=== PATIENT | female | born 1950 | race Caucasian/White ===

== ENCOUNTER → 2017-03-29 | Outpatient (CLI) | payer MEDICARE, BC ==
--- NOTE | 2017-03-30 08:50 | MM ---
Reason for exam: screening (asymptomatic). Last mammogram was performed 1 year and 1 month ago. History: Patient is postmenopausal and is nulliparous. Family history of breast cancer in maternal aunt. Physical Findings: A clinical breast exam by your physician is recommended on an annual basis and results should be correlated with mammographic findings. MG 3D Screening Mammo W/Cad Bilateral CC and MLO view(s) were taken. Prior study comparison: February 20, 2016, bilateral MG 3d screening mammo w/cad. February 07, 2015, bilateral MG screening mammo w CAD. January 23, 2014, bilateral MG screening mammo w CAD. The breast tissue is heterogeneously dense. This may lower the sensitivity of mammography. There is chronic nodularity in the left breast. There is no discrete abnormality. ASSESSMENT: Negative, BI-RAD 1 RECOMMENDATION: Routine screening mammogram of both breasts in 1 year.
== END | disposition home or self-care (01) ==
LOC: RADMAMWWP 07:58
PROVIDERS: ATTEND Family Medicine
DX: Z12.31 Encounter for screening mammogram for malignant neoplasm of breast (principal)
CPT/HCPCS: 77063; 77067

== ENCOUNTER → 2017-10-25 | Outpatient (CLI) | payer MEDICARE, BC ==
--- NOTE | 2017-10-25 16:05 | CONS ---
CONSULTATION This is a 67-year-old female patient, who is coming in for further advice regarding her chronic insomnia. The patient has had chronic insomnia since the age of 28 and her condition got worse at the age of 38 when she went to menopause. This is something that runs in her family and her mother has chronic insomnia also. The patient for years had difficulty initiating sleep. Her symptoms continued after she retired from work. The patient reported that she had difficulty initiating sleep and at times, it will take her up to an hour or 2 to fall asleep. Sometimes she also had difficulty in staying asleep at night. She would wake up unrefreshed and her sleep was non restorative sleep. During the day, she would feel fatigued and tired. Upon further questioning, the patient denies having any history of snoring. No choking or gasping for air in the middle of the night. No restlessness in the lower extremities. No numbness or tingling or creepy crawly sensation in lower extremities. No history of any grinding of the teeth. She has some limited anxiety. No panic attacks. No heartburn. No chest pain. No shortness of breath. No chronic pain. No history of any substance abuse. No history of alcoholism. No history of head trauma. She drinks 1 or 2 cups of coffee in the morning. She does not do late showers, does not do any late exercises. She is not into habits were she does any form of computer work or internet activity late at night time. She has discussed this with her primary care physician. Recently she was started on Ambien 10 mg at bedtime. With initiation of Ambien, her sleep quality is improved and she is able to induce sleep within 12-15 minutes and she would wake up. She would go to bed around midnight wake up 6:00 am in the morning and upon arousal she feels refreshed and she is feeling refreshed during the day. No side effects related to Ambien. No sleep walking. No sleep talking. By the time she wakes up in the morning she has no hangover. She is not taking any naps during the day. She has however concerned of the long-term side effects including the potential for dependency and take of Ambien. PAST MEDICAL HISTORY: Chronic insomnia, hyperlipidemia, and heartburn. SURGICAL HISTORY: Includes tonsillectomy, resection of an ovarian cyst. DRUG ALLERGIES: SULFA. OUTPATIENT MEDICATION LIST: Includes Ambien 10 mg at bedtime, Lipitor 20 mg daily and omeprazole 40 mg p.o. daily. SOCIAL HISTORY: Nonsmoker, no history of alcohol. No history of IV drugs. FAMILY HISTORY: Positive for insomnia. REVIEW OF SYSTEMS: 12-point review of system was done. Positive findings are mentioned above history of present illness. PHYSICAL EXAMINATION: BP is 170/80, pulse is 94, respirations 16, temp 97.9, saturation 99% on room air. Weight is 201, height 5 feet 3 inches, neck size 15 inches and BMI 35.6. GENERAL APPEARANCE: Calm, comfortable. Head is atraumatic, normocephalic. NECK: Supple. There is no JVD. No goiter or neck mass. LUNGS: Clear to auscultation. HEART: Sounds regular rhythm. Normal S1, S2. No S3, S4. No murmurs. ABDOMEN: Soft and nontender. EXTREMITIES: No edema. No cyanosis or clubbing. NEUROLOGIC: Alert and oriented x3. There is no focal neurological deficits. PSYCHIATRICALLY: The patient has no active anxiety or depression. IMPRESSION: Chronic physiologic insomnia improved on Ambien. With use of Ambien the patient is able to generate and maintain sleep for a total of 6 hours and she is waking up refreshed and alert during the day. The review of system is negative for any secondary causes that could potentially impair her sleep quality. Specifically the patient does not have any anxiety or stress or depression which of the most common cause of chronic insomnia. In addition, she does not have any significant level of anger, worry, grief, bipolar disorder or a trauma. Medically she is free of any kidney disease, cancer, acid reflux is well treated and she does not have any thyroid disease. Nor does she have any neurologic disease. She does not take any stimulating medications, nor antidepressant. She is menopausal. She has no issues with chronic pain. PLAN: My suggestion for this patient is to continue Ambien for now especially that she has been able to initiate and maintain sleep for 6 hours without any major side effects. Ambien itself is a non benzodiazepine, benzodiazepine receptor agonist. It does not suppress respiratory drive nor has any major long-term side effects. In addition, with the use of Ambien the patient was asked to avoid naps during the day. She was asked to avoid stimulating activity and stressful situations before bedtime such as checking messages, social media or any other activities. She was asked to maker her bedroom environment quiet and not allowed any light stimulation early in the morning. She was asked to stop watching TV or use her tablet or computer and choose other relaxing activities such as reading a book or listening to soft music. She was asked to maintain a regular sleep schedule. She was asked to avoid noise, light in bedroom environment and keep the temperature of the bedroom rather cool and use a comfortable mattress and pillow that will be sleep promoting. She was asked to avoid drinking too many liquids at bedtime, avoid alcohol drinking, avoid eating large meals a few hours before bed and avoid drinking caffeine in the afternoon. As far as the Ambien, this can be continued can be refilled regularly through her primary care physician, but I support this treatment at this point in time with the intention of trying to get off of it in 6 months to a year's time. She will be followed up with primary care physician. Contact me back if there should be any new issues with her sleep quality. MARGARET / ANDI: [id number] /
== END | disposition home or self-care (01) ==
LOC: SLEEP 14:16
PROVIDERS: ATTEND Internal Medicine Critical Care Medicine
DX: F51.04 Psychophysiologic insomnia (principal); E78.5 Hyperlipidemia, unspecified; Z79.899 Other long term (current) drug therapy; Z88.2 Allergy status to sulfonamides; Z90.89 Acquired absence of other organs
CPT/HCPCS: 99211

== ENCOUNTER → 2018-04-05 | Outpatient (CLI) | payer MEDICARE, BC ==
--- NOTE | 2018-04-08 09:41 | MM ---
Reason for exam: screening (asymptomatic). Last mammogram was performed 1 year ago. History: Patient is postmenopausal and is nulliparous. Family history of breast cancer in aunt. MG 3D Screening Mammo W/Cad Bilateral CC and MLO view(s) were taken. Prior study comparison: March 29, 2017, bilateral MG 3d screening mammo w/cad. February 20, 2016, bilateral MG 3d screening mammo w/cad. The breast tissue is heterogeneously dense. This may lower the sensitivity of mammography. No discrete abnormality. ASSESSMENT: Negative, BI-RAD 1 RECOMMENDATION: Routine screening mammogram of both breasts in 1 year.
== END | disposition home or self-care (01) ==
LOC: RADMAMWWP 09:11
PROVIDERS: ATTEND Family Medicine
DX: Z12.31 Encounter for screening mammogram for malignant neoplasm of breast (principal)
CPT/HCPCS: 77063; 77067

== ENCOUNTER → 2018-05-16 | Outpatient (CLI) | payer MEDICARE, BC ==
--- NOTE | 2018-05-16 13:48 | ECHOS ---
STRESS ECHOCARDIOGRAM INDICATIONS: Chest pain. MEDICATIONS: Lipitor, vitamin D, Zolpidem,omeprazole, testosterone, Biotin, COG-10, Aleve. BASELINE HEART RATE: 109 BASELINE BLOOD PRESSURE: 149/106 MAXIMUM HEART RATE: 152 MAXIMUM BLOOD PRESSURE: 194/97 85% MPHR: 128 100% MPHR: 151 METS: 8.3 MAXIMUM STAGE REACHED: II TOTAL EXERCISE TIME: 7:00 CLINICAL INFORMATION: STRESS DATA: Pretesting physical examination showed a heart rate of 109, pressure is 149/106 mmHg. Baseline EKG showed sinus mechanism. The patient exercised on the treadmill according to Angel protocol for a total of 7 minutes and achieved 8.3 METS. Max heart rate was 152, which is about 101% of maximum predicted heart rate. Maximum blood pressure was 162/76 mmHg. Clinically, the patient did not have any symptoms of chest pain or discomfort. The EKG did not show any significant ST or T-wave abnormalities concerning for ischemia. CONCLUSION: 1. Good exercise tolerance. 2. Normal EKG in response to exercise. 3. Essentially normal stress test for the patient. MMODL / IJN: [id number] /
== END | disposition home or self-care (01) ==
LOC: RADNMMAIN 09:20
PROVIDERS: ATTEND Family Medicine
DX: R07.89 Other chest pain (principal)
CPT/HCPCS: 93351

== ENCOUNTER → 2019-04-10 | Outpatient (CLI) | payer MEDICARE, BC ==
--- NOTE | 2019-04-11 14:42 | MM ---
Reason for exam: screening (asymptomatic). Last mammogram was performed 1 year ago. History: Patient is postmenopausal and is nulliparous. Family history of breast cancer in aunt. Physical Findings: A clinical breast exam by your physician is recommended on an annual basis and results should be correlated with mammographic findings. MG 3D Screening Mammo W/Cad Bilateral CC and MLO view(s) were taken. Prior study comparison: April 05, 2018, bilateral MG 3d screening mammo w/cad. March 29, 2017, bilateral MG 3d screening mammo w/cad. The breast tissue is heterogeneously dense. This may lower the sensitivity of mammography. There is no discrete abnormality. ASSESSMENT: Negative, BI-RAD 1 RECOMMENDATION: Routine screening mammogram of both breasts in 1 year.
== END | disposition home or self-care (01) ==
LOC: RADMAMWWP 08:17
PROVIDERS: ATTEND Family Medicine
DX: Z12.31 Encounter for screening mammogram for malignant neoplasm of breast (principal)
CPT/HCPCS: 77063; 77067

== ENCOUNTER → 2019-04-27 | Outpatient (CLI) | payer MEDICARE, BC ==
--- NOTE | 2019-04-27 13:16 | MR ---
EXAMINATION TYPE: MR iac wo/w con DATE OF EXAM: 04/27/2019 COMPARISON: None HISTORY: Acoustic nerve disorder, hearing loss, dysequilibrium TECHNIQUE: Multiplanar, multisequence images of the brain and brainstem with small [id number] images, high-re solution images through the internal auditory canals is performed without and with IV contrast, utili zing 8.5 mL intravenous Gadavist . FINDINGS: Diffusion weighted images demonstrate no evidence of a recent infarct or other diffusion ab normality. There is no extra-axial fluid collection. Periventricular white matter shows hyperintens ities on inversion recovery T2-weighted sequences, probable 2 confluent lesions adjacent to the poste rior horn of the right lateral ventricle towards the central semiovale measures 15 mm on the right an d axial image #20. There are approximately 5-10 lesions present. The ventricular system and cisternal spaces are normal in size and appearance. The brain volume is age appropriate. Midline structures demonstrate normal morphology. The craniocervical junction appears within normal limits. Post contrast images demonstrate focus of abnormal enhancement along the sphenoid ridge, inf erior left frontal lobe, axial image #12, sagittal image #58 through 60 measuring approximately 10 mm in greatest AP dimension on the left which is isointense on precontrast images. The dural venous sin uses appear patent. The mastoids are remarkable for inflammatory changes within the mastoid air cells on the right greater than left, sinuses are showing mild inflammatory change ethmoid air cells and l eft maxillary sinus and the globes are intact. Cerebellopontine angles are unremarkable, internal aud itory canals show symmetric and normal appearance IMPRESSION: Mild inflammatory changes mastoid air cells, sinuses. Small meningioma is favored along t he inferior aspect of the left frontal lobe. Nonspecific white matter demyelination may be due to chr onic small vessel ischemic changes.
== END | disposition home or self-care (01) ==
LOC: RADMRIMAIN 09:23
PROVIDERS: ATTEND Otolaryngology
DX: H75.02 Mastoiditis in infectious and parasitic diseases classified elsewhere, left ear (principal); G37.9 Demyelinating disease of central nervous system, unspecified; Z88.2 Allergy status to sulfonamides
CPT/HCPCS: 70553; A9585

== ENCOUNTER → 2019-06-05 | Outpatient (CLI) | payer MEDICARE, BC ==
--- NOTE | 2019-06-05 13:23 | US ---
EXAMINATION TYPE: US carotid duplex BILAT DATE OF EXAM: 06/05/2019 COMPARISON: Carotid ultrasound June 22, 2018. MRI IAC April 27, 2019. CLINICAL HISTORY: I73.9 Occlusive disease. Followup per patient. EXAM MEASUREMENTS: RIGHT: Peak Systolic Velocity (PSV) cm/sec ----- Right CCA: 90.3 ----- Right ICA: 80.9 ----- Right ECA: 122.1 ICA/CCA ratio: 0.9 RIGHT: End Diastole cm/sec ----- Right CCA: 32.3 ----- Right ICA: 29.2 ----- Right ECA: 30.0 LEFT: Peak Systolic Velocity (PSV) cm/sec ----- Left CCA: 77.6 ----- Left ICA: 59.8 ----- Left ECA: 68.1 ICA/CCA ratio: 0.8 LEFT: End Diastole cm/sec ----- Left CCA: 27.0 ----- Left ICA: 22.3 ----- Left ECA: 17.3 VERTEBRALS (direction of flow): Right Vertebral: Antegrade Left Vertebral: Antegrade Rhythm: Normal Mild to moderate intimal wall changes are seen at bilateral carotid bifurcation, but PSV is wnl bilat erally. Incidental findings of bilateral thyroid nodules are noted. David scale images demonstrate mild to moderate peripheral plaque at bilateral carotid bulb level. Evelio ocity measurements and ratios in the left portion of both internal carotid arteries remain within nor mal limits. IMPRESSION: Stable mild to moderate atherosclerotic changes without new hemodynamically significant stenosis seen in either internal carotid artery . Technologist notes bilateral thyroid nodules, thi s can be better evaluated and characterized with dedicated thyroid ultrasound if desired. Correlate c linically. Criteria for Assigning % of Stenosis / Diameter reduction (Estimation based on the indirect measurements of the internal carotid artery velocities (ICA PSV). 1. Normal (no stenosis)=ICA PSV < 125 cm/s: ratio < 2.0: ICA EDV<40 cm/s. 2. Less than 50% stenosis=ICA PSV < 125 cm/s: ratio < 2.0: ICA EDV<40 cm/s. 3. 50 to 69% stenosis=ICA PSV of 125 to 230 cm/s: ration 2.0 ? 4.0: ICA EDV 40-100 cm/s. 4. Greater than 70% stenosis to near occlusion= ICA PSV > 230 cm/s: ratio > 4.0: ICA EDV > 100 cm/s. 5. Near occlusion= ICA PSV velocities may be low or undetectable: variable ratio and ICA EDV. 6. Total occlusion=unable to detect flow.
[2019-06-05 13:59] LABS: INR 0.9 (<1.2); Partial Thromboplastin Time 23.6 sec (22.0-30.0); Prothrombin Time 9.7 sec (9.0-12.0)
[2019-06-05 14:09] LABS: Glucose 91 mg/dL (74-99)
[2019-06-05 14:28] LABS: T4, Free (Free Thyroxine) 1.18 ng/dL (0.78-2.19)
[2019-06-05 14:43] LABS: C Reactive Protein <5.0 mg/L (<10.0)
== END | disposition home or self-care (01) ==
LOC: RADUSWWP 12:36
PROVIDERS: ATTEND Psychiatry & Neurology Neurology
DX: I65.29 Occlusion and stenosis of unspecified carotid artery (principal); I63.9 Cerebral infarction, unspecified; R94.6 Abnormal results of thyroid function studies
CPT/HCPCS: 36415; 82947; 83090; 84439; 84443; 85610; 85652; 85730; 86140; 86618; 93880

== ENCOUNTER → 2020-05-07 | Outpatient (CLI) | payer MEDICARE, BC ==
--- NOTE | 2020-05-09 11:10 | MM ---
Reason for exam: screening (asymptomatic). Last mammogram was performed 1 year and 1 month ago. History: Patient is postmenopausal and is nulliparous. Family history of breast cancer in aunt. Physical Findings: A clinical breast exam by your physician is recommended on an annual basis and results should be correlated with mammographic findings. MG 3D Screening Mammo W/Cad Bilateral CC and MLO view(s) were taken. Prior study comparison: April 10, 2019, bilateral MG 3d screening mammo w/cad. April 05, 2018, bilateral MG 3d screening mammo w/cad. There are scattered fibroglandular densities. There is no discrete abnormality. No significant changes when compared with prior studies. ASSESSMENT: Negative, BI-RAD 1 RECOMMENDATION: Routine screening mammogram of both breasts in 1 year.
== END | disposition home or self-care (01) ==
LOC: RADMAMWWP 11:38
PROVIDERS: ATTEND Family Medicine
DX: Z12.31 Encounter for screening mammogram for malignant neoplasm of breast (principal)
CPT/HCPCS: 77063; 77067

== ENCOUNTER → 2020-05-15 | Outpatient (CLI) | payer MEDICARE, BC ==
--- NOTE | 2020-05-15 12:08 | US ---
EXAMINATION TYPE: US venous doppler duplex LE RT DATE OF EXAM: 05/15/2020 11:19 AM COMPARISON: NONE CLINICAL HISTORY: 69-year-old female R60 Edema lower extremity. SIDE PERFORMED: Right TECHNIQUE: The lower extremity deep venous system is examined utilizing real time linear array sonog kacie with graded compression, doppler sonography and color-flow sonography. FINDINGS: VESSELS IMAGED: Common Femoral Vein Deep Femoral Vein Greater Saphenous Vein * Femoral Vein Popliteal Vein Small Saphenous Vein * Proximal Calf Veins (* superficial vessels) Right Leg: Negative for DVT IMPRESSION: No evidence for DVT within the right lower extremity imaged from the groin to the upper calf.
== END | disposition home or self-care (01) ==
LOC: RADUSWWP 10:42
PROVIDERS: ATTEND Family Medicine
DX: R60.0 Localized edema (principal)

== ENCOUNTER → 2020-06-26 | Outpatient (CLI) | payer MEDICARE, BC ==
--- NOTE | 2020-06-26 13:39 | MR ---
EXAMINATION TYPE: MR brain and iac wo/w con DATE OF EXAM: 06/26/2020 COMPARISON: MR 04/27/2019 HISTORY: Dizziness and giddiness, R 42 TECHNIQUE: Multiplanar, multisequence images of the brain and brainstem is performed without and with IV contras t, utilizing 7.5 mL intravenous Gadavist . FINDINGS: Diffusion weighted images demonstrate no evidence of a recent infarct or other diffusion ab normality. There is no extra-axial fluid collection. There is an isointense mass present along the posterior orbital roof, the sphenoid wing on the left which shows homogenous enhancement and is pleur al-based and measures approximately 1 cm in transverse dimension by 12 mm in AP dimension by 12 mm by AP dimension. Periventricular white matter shows scattered areas of hyperintensity and inversion rec overy T2-weighted sequences, largest lesion posterior to the posterior horn the right lateral ventric le measures approximately 1.5 cm in AP dimension. The ventricular system and cisternal spaces are nor mal in size and appearance. The brain volume is age appropriate. Cerebellopontine angles are within normal limits, there is no internal auditory canal mass. Midline structures demonstrate normal morphology. The craniocervical junction appears within normal limits. Post contrast images demonstrate no abnormal enhancement. The dural venous sinuses appear pa tent. The visualized sinuses are remarkable for inflammatory change in ethmoid air cells and the glob es are intact, some inflammatory change present within the ethmoid air cells is noted, there are norm al vascular flow voids. IMPRESSION: Findings consistent with sphenoid wing meningioma. No internal auditory canal mass.
== END | disposition home or self-care (01) ==
LOC: RADMRIMAIN 07:45
PROVIDERS: ATTEND Family Medicine
DX: R42 Dizziness and giddiness (principal)
CPT/HCPCS: 70553; A9585

== ENCOUNTER → 2021-10-07 | Outpatient (CLI) | payer MEDICARE, BC ==
--- NOTE | 2021-10-08 10:08 | US ---
EXAMINATION TYPE: US arterial LE single level DATE OF EXAM: 10/07/2021 12:50 PM CLINICAL HISTORY: I73.9 PERIPHERAL VASCULAR DISEASE. Peripheral vascular disease per order. Hx hyperl ipidemia. Exam was slightly limited due to movement. Doppler Waveforms: Right: Multiphasic Left: Multiphasic Pulse Volume Recording: Pressure Gradients: Ankle-Brachial Indices: Right: 1.28 Left: 1.21 Toe Brachial Indices: Right: 0.85 Left: 0.62 IMPRESSION: Normal study
== END | disposition home or self-care (01) ==
LOC: RADUSWWP 11:44
PROVIDERS: ATTEND Family Medicine
DX: I73.9 Peripheral vascular disease, unspecified (principal)
CPT/HCPCS: 93922

== ENCOUNTER → 2021-10-10 | Outpatient (CLI) | payer MEDICARE, BC ==
--- NOTE | 2021-10-10 12:58 | MR ---
EXAMINATION TYPE: MR brain wo/w con DATE OF EXAM: 10/10/2021 12:50 PM COMPARISON: 06/26/2020 HISTORY: Follow-up comparison to abnormal MRI, intracranial meningioma. CONTRAST: Patient received 9 mL intravenous Gadavist gadolinium contrast. Multiplanar and multispin-echo imaging of the brain was performed . Pre and post contrast enhanced i mages are obtained. The ventricles, basal cisterns and sulci overlying the cerebral convexities are mildly enlarged. There is evidence of mild periventricular white matter ischemic demyelination. Remote deep white matter insults are also noted. No acute edema is seen on diffusion weighted imaging. There is no evidence for midline shift or mass effect. Acute intracranial hemorrhage or extra-axial collection is not evident. There is an enlarging left sphenoid wing homogeneously enhancing mass felt to reflect left sphenoid w ing meningioma. Current measurement is 1.4 x 1.4 x 1.0 cm versus prior maximal measurement of 1.2 cm. The paranasal sinuses and mastoid air cells are well-aerated. IMPRESSION: 1. Enlarging left sphenoid wing meningioma. 2. Age-related atrophic and chronic small vessel ischemic change. No acute intracranial process at this time.
== END | disposition home or self-care (01) ==
LOC: RADMRIMAIN 11:26
PROVIDERS: ATTEND Family Medicine
DX: G31.9 Degenerative disease of nervous system, unspecified (principal); I67.82 Cerebral ischemia
CPT/HCPCS: 70553; A9585

== ENCOUNTER → 2022-03-29 | Outpatient (CLI) | payer MEDICARE, BC ==
--- NOTE | 2022-03-29 14:30 | MR ---
EXAMINATION TYPE: MR brain wo/w con DATE OF EXAM: 03/29/2022 COMPARISON: MRI brain October 10, 2021 HISTORY: Benign neoplasm brainstem TECHNIQUE: Multiplanar, multisequence images of the brain and brainstem is performed without and with IV contras t, utilizing 9 mL intravenous Gadavist . FINDINGS: Diffusion weighted images demonstrate no evidence of a recent infarct or other diffusion ab normality. There is mild to moderate ventricular and sulcal prominence redemonstrated. There are scat tered areas of T2 hyperintensity seen throughout the white matter bilaterally redemonstrated. Lesions are nonspecific in appearance and distribution. Midline structures redemonstrate normal morphology. The craniocervical junction remains within arti l limits. Left frontal craniotomy changes are now present. Prior 1.4 cm enhancing mass in the inferior left fro ntal lobe now was not clearly seen near axial image 11. No new enhancing masses are present. There is new Mild nonspecific curvilinear dural enhancement over the bilateral frontal lobes left greater ronny n right axial image 16 for reference. Findings correlate with interval resection of left inferior fro ntal meningioma. The dural venous sinuses remain patent. Mild mucosal thickening involving the spheno id sinuses is present. Globes are intact bilaterally. Increased fluid signal right mastoid air cells is again seen. IMPRESSION: Interval successful surgical resection of left skull base meningioma. Other findings stab le. [id number] diffuse cerebral atrophy and chronic small vessel ischemic change redemonstrated . No new enhancing masses are noted.
== END | disposition home or self-care (01) ==
LOC: RADMRIMAIN 13:09
DX: D32.9 Benign neoplasm of meninges, unspecified (principal); G31.9 Degenerative disease of nervous system, unspecified; I67.82 Cerebral ischemia
CPT/HCPCS: 70553; A9585

== ENCOUNTER → 2023-04-05 | Outpatient (CLI) | payer MEDICARE, BC ==
--- NOTE | 2023-04-05 21:27 | MR ---
EXAMINATION TYPE: MR brain wo/w con DATE OF EXAM: 04/05/2023 2:13 PM CLINICAL INDICATION:Female, 72 years old with history of D32.9 BENIGN NEOPLASM; PHH, Benign neoplasm, follow-up to surgery done Dec 2021. COMPARISON: 03/29/2022. TECHNIQUE: Multi planar, multi sequence imaging was performed through the brain including: T1, T2, In version recovery, susceptibility weighted imaging and gradient echo imaging and Diffusion weighted im aging. The patient was then given intravenous contrast and multi planar, T1 fat-saturation images wer e obtained. IV Contrast: 8 cc Gadavist FINDINGS: Postsurgical changes without evidence of abnormal post contrast enhancement within the surg ical bed. Susceptibility artifact seen within the surgical bed margins. Mild cerebral atrophy with pr oportional dilation of ventricular system. Diffusion-weighted imaging shows no evidence of restricte d diffusion to suggest acute/subacute infarct. Intracranial arterial flow voids are maintained. Midli ne structures show no abnormality. Scattered foci of high T2 signal intensity are seen within the per iventricular white matter. The susceptibility weighted images do not reveal any evidence for micro-he morrhage. After administration of gadolinium, no abnormal enhancement is seen. The bone marrow signal is within normal limits. Paranasal sinuses and mastoid air cells: Moderate mucosal thickening of the left maxillary sinus. Visualized orbits: Bilaterally aphakia. IMPRESSION: 1. Stable exam with postsurgical changes of the left frontal skull. No evidence of abnormal postcontr ast enhancement. 2. No evidence of intracranial mass, acute/subacute infarct, or abnormal enhancement. 3. Nonspecific white matter changes, likely related to small vessel ischemic disease.
== END | disposition home or self-care (01) ==
LOC: RADMRIMAIN 13:03
PROVIDERS: ATTEND Neurological Surgery
DX: D32.9 Benign neoplasm of meninges, unspecified (principal); R90.82 White matter disease, unspecified; Z98.890 Other specified postprocedural states
CPT/HCPCS: 70553; A9585

== ENCOUNTER → 2023-05-16 | Outpatient (CLI) | payer MEDICARE, BC ==
--- NOTE | 2023-05-17 22:13 | MM ---
Reason for Exam: Screening (asymptomatic). Last screening mammogram was performed 12 month(s) ago. Patient History: Menarche at age 11. Patient has no children. Postmenopausal. Maternal aunt had breast cancer, age 35. Risk Values: Susan 5 year model risk: 2.0%. NCI Lifetime model risk: 4.5%. Prior Study Comparison: 05/07/2020 Bilateral Screening Mammogram, [facility]. 05/12/2021 Bilateral Screening Mammogram, [facility]. 05/13/2022 Bilateral MG 3D screening mammo w/cad, [facility]. Tissue Density: There are scattered fibroglandular densities. Findings: Analyzed By CAD. There is no suspicious group of microcalcifications or new suspicious mass in either breast. Overall Assessment: Negative, BI-RAD 1 Management: Screening Mammogram of both breasts in 1 year. . Patient should continue monthly self-breast exams. A clinical breast exam by your physician is recommended on an annual basis. This exam should not preclude additional follow-up of suspicious palpable abnormalities. Note on Susan scores and lifetime risk: 1. A Susan score greater than 3% is considered moderate risk. If this is the case, consider specialist referral to assess eligibility for a risk reducing agent. 2. If overall lifetime risk for the development of breast cancer is 20% or higher, the patient may qualify for future screening with alternating mammogram and breast MRI. Electronically signed and approved by: Ayleen Tena M.D. Radiologist
== END | disposition home or self-care (01) ==
LOC: RADMAMWWP 10:00
PROVIDERS: ATTEND Family Medicine
DX: Z12.31 Encounter for screening mammogram for malignant neoplasm of breast (principal); Z78.0 Asymptomatic menopausal state; Z80.3 Family history of malignant neoplasm of breast
CPT/HCPCS: 77063; 77067

== ENCOUNTER → 2024-04-05 | Outpatient (CLI) | payer MEDICARE, BC ==
--- NOTE | 2024-04-05 15:10 | MR ---
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 Diffusion weighted imaging is performed. FINDINGS: Redemonstrated posterior cerebral changes with left frontal craniotomy flap and underlying smooth dur al enhancement likely postsurgical change. The ventricles and sulci are age appropriate with mild generalized volume loss and ventricular promin ence. Prominent CSF space anterior left parietal convexity measuring 2.9 cm may be an underlying arachnoid cyst versus some more localized atrophy. Otherwise, no evidence for acute infarction, hemorrhage, mass, mass effect, midline shift, herniation , effacement of basal cisterns, or extra-axial fluid collection. Major intracranial flow voids are intact. T2/FLAIR weighted sequences show mild patchy right white matter change in the periventricular and saul p white matter regions of both cerebral hemispheres. Midline structures demonstrate normal morphology. The craniocervical junction is normal. Post contrast images demonstrate no evidence of pathologic enhancement. Dural venous sinuses are pat ent. Mild to moderate mucosal thickening ethmoid air cells. Rightward nasal septal deviation. Globes are i ntact. Some fluid within the right mastoid air cells. IMPRESSION: 1. Stable exam with postsurgical change of previous left frontal craniotomy flap. No residual tumor o r abnormal enhancement is seen. 2. Mild cerebral atrophy and similar mild burden of chronic small vessel ischemic disease. No acute i ntracranial abnormality seen. 3. Prominent CSF space along the anterior left parietal convexity could represent some more focal cor tical volume loss versus underlying 2.9 cm arachnoid cyst which remains unchanged. 4. Trapped fluid within the right mastoid air cells. Correlate for any mastoid pain to exclude mastoi ditis. [facility], , 04/05/2024 3:07 PM
== END | disposition home or self-care (01) ==
LOC: RADMRIMAIN 09:54
PROVIDERS: ATTEND Neurological Surgery
DX: D32.9 Benign neoplasm of meninges, unspecified (principal); I67.82 Cerebral ischemia
CPT/HCPCS: 70553; A9585

== ENCOUNTER 2024-05-20 18:18 | Inpatient (IN) | payer MEDICARE, BC, OTHER ==
--- NOTE | 2024-05-20 18:57 | ED ---
Female Urogenital HPI - General Chief complaint: Abdominal Pain Stated complaint: side pain Time Seen by Provider: 05/20/24 18:28 Source: patient, RN notes reviewed Mode of arrival: ambulatory Limitations: no limitations - History of Present Illness Initial comments: This is a 73-year-old female with history of recurrent UTIs presenting with UTI symptoms x 3 days. Patient endorses initial symptoms of increased urinary frequency, later developing right flank pain, nausea and now oliguria. Denies fever, chills, dysuria, hematuria. Denies history of nephrolithiasis. Onset/Timin -: days(s) Radiation: R flank Severity: moderate Improves with: urination - Related Data Previous Rx's Medication Instructions Recorded Ciprofloxacin HCl [Cipro] 500 mg PO BID 1 Days #14 tab 05/20/24 Allergies Allergy/AdvReac Type Severity Reaction Status Date / Time Sulfa (Sulfonamide Allergy Vomiting Verified 05/20/24 18:49 Antibiotics) Review of Systems ROS Statement: Those systems with pertinent positive or pertinent negative responses have been documented in the HPI. ROS Other: All systems not noted in ROS Statement are negative. Past Medical History Additional Past Medical History / Comment(s): over active bladder History of Any Multi-Drug Resistant Organisms: None Reported Additional Past Surgical History / Comment(s): b/l cataract removal Past Psychological History: No Psychological Hx Reported Smoking Status: Never smoker Past Alcohol Use History: None Reported Past Drug Use History: None Reported General Exam Limitations: no limitations General appearance: alert, in no apparent distress Head exam: Present: atraumatic, normocephalic, normal inspection Eye exam: Present: normal appearance, PERRL, EOMI. Absent: scleral icterus, conjunctival injection, periorbital swelling ENT exam: Present: normal exam, mucous membranes moist Neck exam: Present: normal inspection. Absent: tenderness, meningismus, lymphadenopathy Respiratory exam: Present: normal lung sounds bilaterally. Absent: respiratory distress, wheezes, rales, rhonchi, stridor Cardiovascular Exam: Present: regular rate, normal rhythm, normal heart sounds. Absent: systolic murmur, diastolic murmur, rubs, gallop, clicks GI/Abdominal exam: Present: soft, normal bowel sounds. Absent: distended, tenderness, guarding, rebound, rigid Extremities exam: Present: normal inspection, full ROM, normal capillary refill. Absent: tenderness, pedal edema, joint swelling, calf tenderness Back exam: Present: CVA tenderness (R). Absent: CVA tenderness (L) Neurological exam: Present: alert, oriented X3, CN II-XII intact Psychiatric exam: Present: normal affect, normal mood Skin exam: Present: warm, dry, intact, normal color. Absent: rash Course Vital Signs 05/20/24 05/20/24 05/20/24 18:44 19:35 21:51 Temperature 97.8 F 97.6 F 102 F H Pulse Rate 86 93 131 H Respiratory 19 18 22 Rate Blood Pressure 168/84 205/106 158/71 O2 Sat by Pulse 99 98 90 L Oximetry 05/20/24 22:48 Temperature 101 F H Pulse Rate 122 H Respiratory 18 Rate Blood Pressure 132/63 O2 Sat by Pulse 92 L Oximetry Medical Decision Making - Medical Decision Making Was pt. sent in by a medical professional or institution (, PA, ARTERIAL EMBALMER, urgent care, hospital, or assisted...) When possible be specific @ -No Did you speak to anyone other than the patient for history (EMS, parent, family, police, friend...)? What history was obtained from this source @ -No Did you review nursing and triage notes (agree or disagree)? Why? @ -I reviewed and agree with nursing and triage notes Were old charts reviewed (outside hosp., previous admission, EMS record, old EKG, old radiological studies, urgent care reports/EKG's, assisted records)? Report findings @ -No old charts were reviewed Differential Diagnosis (chest pain, altered mental status, abdominal pain women, abdominal pain men, vaginal bleeding, weakness, fever, dyspnea, syncope, headache, dizziness, GI bleed, back pain, seizure, CVA, palpatations, mental health, musculoskeletal)? @ -Differential Abdominal Pain Women: Appendicitis, Cholecystitis, diverticulosis, ischemic bowel, pancreatitis, hepatitis, UTI, gastroenteritis, AAA, incarcerated hernia, bowel obstruction, constipation, inflammatory bowel, hepatitis, peptic ulcer disease, splenic infarction, perforated viscus, vulvitis, ovarian torsion, PID, kidney stone, placenta abruption, this is not meant to be an all-inclusive list EKG interpreted by me (3pts min.). @ -Not done X-rays interpreted by me (1pt min.). @ -None done CT interpreted by me (1pt min.). @ -Abdomen/pelvic CT shows moderate right hydronephrosis and periureteral inflammatory changes with no obstructing etiology as well as left kidney peripelvic cyst. U/S interpreted by me (1pt. min.). @ -None done What testing was considered but not performed or refused? (CT, X-rays, U/S, labs)? Why? @ -None What meds were considered but not given or refused? Why? @ -None Did you discuss the management of the patient with other professionals (professionals i.e. Dr., PA, ARTERIAL EMBALMER, lab, RT, psych nurse, social worker palliative care, riveting machine operator tape control, teacher, parole hearing officer, piano case maker)? Give summary @ -Spoke to Dr. Greene from [facility] who agreed to observation admission Was smoking cessation discussed for >3mins.? @ -No Was critical care preformed (if so, how long)? @ -No Were there social determinants of health that impacted care today? How? (Homelessness, low income, unemployed, alcoholism, drug addiction, transportation, low edu. Level, literacy, decrease access to med. care, skilled nursing, rehab)? @ -No Was there de-escalation of care discussed even if they declined (Discuss DNR or withdrawal of care, Hospice)? DNR status @ -No What co-morbidities impacted this encounter? (DM, HTN, Smoking, COPD, CAD, Cancer, CVA, ARF, Chemo, Hep., AIDS, mental health diagnosis, sleep apnea, morbid obesity)? @ -None Was patient admitted / discharged? Hospital course, mention meds given and route, prescriptions, significant lab abnormalities, going to OR and other pertinent info. @ -Lab work shows mild leukocytosis 11.2 with left shift. Elevated BUN 24 and hyperglycemia 148. UA shows indication of UTI. Patient initially given IV normal saline and Zofran. Provided IV Rocephin and additional normal saline. Due to significantly elevated blood pressure, abdomen/pelvic CT performed to rule out nephrolithiasis. Abdomen/pelvic CT shows moderate right hydronephrosis and periureteral inflammatory changes with no obstructing etiology as well as left kidney peripelvic cyst. Patient provided p.o. ciprofloxacin with remaining regimen sent to pharmacy. Prior to discharge, repeat vital signs show significant hypertension, tachycardia, hypoxia and fever. Patient provided p.o. Tylenol and ibuprofen. Repeat vital signs shows ongoing fever, tachycardia 120 and hypoxia 92% room air. Spoke to Dr. Greene from [facility] who agreed to observati on admission. Discussed patient with Dr. Lennon. Undiagnosed new problem with uncertain prognosis? @ -No Drug Therapy requiring intensive monitoring for toxicity (Heparin, Nitro, Insulin, Cardizem)? @ -No Were any procedures done? @ -No Diagnosis/symptom? @ -UTI with pyelonephritis Acute, or Chronic, or Acute on Chronic? @ -Acute Uncomplicated (without systemic symptoms) or Complicated (systemic symptoms)? @ -Complicated Side effects of treatment? @ -No Exacerbation, Progression, or Severe Exacerbation? @ -Progression Poses a threat to life or bodily function? How? (Chest pain, [place], [place], pneumonia, PE, COPD, DKA, ARF, appy, cholecystitis, CVA, Diverticulitis, Homicidal, Suicidal, threat to staff... and all critical care pts) @ -Pyelonephritis, possibility for urosepsis - Lab Data Result diagrams: 05/20/24 19:10 05/20/24 19:10 Lab Results 05/20/24 05/20/24 05/20/24 Range/Units 19:10 19:10 19:10 WBC 11.2 H (3.8-10.6) k/uL RBC 4.75 (3.80-5.40) m/uL Hgb 13.1 (11.4-16.0) gm/dL Hct 40.8 (34.0-46.0) % MCV 86.0 (80.0-100.0) fL MCH 27.7 (25.0-35.0) pg MCHC 32.2 (31.0-37.0) g/dL RDW 14.0 (11.5-15.5) % Plt Count 260 (150-450) k/uL MPV 7.6 Neutrophils % 91 % Lymphocytes % 7 % Monocytes % 1 % Eosinophils % 1 % Basophils % 0 % Neutrophils # 10.2 H (1.3-7.7) k/uL Lymphocytes # 0.8 L (1.0-4.8) k/uL Monocytes # 0.1 (0-1.0) k/uL Eosinophils # 0.1 (0-0.7) k/uL Basophils # 0.0 (0-0.2) k/uL Sodium 142 (137-145) mmol/L Potassium 4.2 (3.5-5.1) mmol/L Chloride 106 (98-107) mmol/L Carbon Dioxide 21 L (22-30) mmol/L Anion Gap 15 mmol/L BUN 24 H (7-17) mg/dL Creatinine 0.94 (0.52-1.04) mg/dL Est GFR (CKD-EPI)AfAm 69 (>60 ml/min/1.73 sqM) Est GFR (CKD-EPI)NonAf 60 (>60 ml/min/1.73 sqM) Glucose 148 H (74-99) mg/dL Calcium 9.9 (8.4-10.2) mg/dL Total Bilirubin 0.8 (0.2-1.3) mg/dL AST 28 (14-36) U/L ALT 18 (4-34) U/L Alkaline Phosphatase 76 (38-126) U/L Total Protein 7.5 (6.3-8.2) g/dL Albumin 4.8 (3.5-5.0) g/dL Urine Color Light Yellow Urine Appearance Clear (Clear) Urine pH 5.5 (5.0-8.0) Ur Specific [place] 1.022 (1.001-1.035) Urine Protein Negative (Negative) Urine Glucose (UA) Negative (Negative) Urine Ketones 1+ H (Negative) Urine Blood Negative (Negative) Urine Nitrite Negative (Negative) Urine Bilirubin Negative (Negative) Urine Urobilinogen <2.0 (<2.0) mg/dL Ur Leukocyte Esterase Large H (Negative) Urine WBC 84 H (0-5) /hpf Ur Squamous Epith Cells 1 (0-4) /hpf Urine Bacteria Occasional H (None) /hpf Urine Mucus Few H (None) /hpf Disposition Clinical Impression: Pyelonephritis of right kidney, UTI (urinary tract infection) Disposition: ADMITTED IP TO THIS HOSP Condition: Good Instructions (If sedation given, give patient instructions): Urinary Tract Infection in Women (ED) Additional Instructions: Increase water and cranberry juice intake. Follow-up with PCP/urology for any ongoing management of UTI/pyelonephritis Prescriptions: Ciprofloxacin HCl [Cipro] 500 mg PO BID 1 Days #14 tab Is patient prescribed a controlled substance at d/c from ED?: No Referrals: Reji Sidhu MD [Primary Care Provider] - 1-2 days Time of Disposition: 22:59 Decision Date: 05/20/24 Decision Time: 22:59
[2024-05-20 19:18] LABS: Basophils % (A) 0 %; Eosinophils # (A) 0.1 k/uL (0-0.7); Eosinophils % (A) 1 %; HCT 40.8 % (34.0-46.0); HGB 13.1 gm/dL (11.4-16.0); Lymphocytes # (A) 0.8 k/uL (1.0-4.8); Lymphocytes % (A) 7 %; MCH 27.7 pg (25.0-35.0); MCHC 32.2 g/dL (31.0-37.0); Mean Platelet Volume 7.6; Monocytes # (A) 0.1 k/uL (0-1.0); Monocytes % (A) 1 %; Neutrophils # (A) 10.2 k/uL (1.3-7.7); Neutrophils % (A) 91 %; Platelet Count 260 k/uL (150-450); RBC 4.75 m/uL (3.80-5.40); WBC 11.2 k/uL (3.8-10.6)
[2024-05-20 19:28] LABS: ALT 18 U/L (4-34); AST 28 U/L (14-36); African American GFR (CKD) 69 (>60 ml/min/1.73 sqM); Albumin 4.8 g/dL (3.5-5.0); Alkaline Phosphatase 76 U/L (38-126); Anion Gap 15 mmol/L; Blood Urea Nitrogen 24 mg/dL (7-17); Calcium 9.9 mg/dL (8.4-10.2); Carbon Dioxide 21 mmol/L (22-30); Chloride 106 mmol/L (98-107); Glucose 148 mg/dL (74-99); Non-African American GFR(CKD) 60 (>60 ml/min/1.73 sqM); Potassium 4.2 mmol/L (3.5-5.1); Sodium 142 mmol/L (137-145); Total Bilirubin 0.8 mg/dL (0.2-1.3); Total Protein 7.5 g/dL (6.3-8.2)
[2024-05-20 19:30] LABS: Appearance,Urine Clear (Clear); Bacteria,Urine Occasional /hpf; Bilirubin,Urine Negative (Negative); Blood,Urine Negative (Negative); Color,Urine Light Yellow; Glucose,Urine (UA) Negative (Negative); Ketones,Urine 1+ (Negative); Leukocyte Esterase,Urine Large (Negative); Mucus,Urine Few /hpf; Nitrite,Urine Negative (Negative); PH, Urine 5.5 (5.0-8.0); Protein,Urine Negative (Negative); Specific Gravity,Urine 1.022 (1.001-1.035); Squamous Epithelial Cell,Urine 1 /hpf (0-4); Urobilinogen,Urine <2.0 mg/dL (<2.0); WBC,Urine 84 /hpf (0-5)
[2024-05-20] MEDS: ONDANSETRON 4 MG/2 ML VIAL IVP STA (19:47)
[2024-05-20] MEDS: SODIUM CHLORIDE 0.9% 500 ML 500 ML IV STA (19:47)
[2024-05-20] MEDS: cefTRIAXone IN SWFI 1,000 MG/10 ML SYRINGE IVP STA ×2 (20:06→20:09)
[2024-05-20] MEDS: SODIUM CHLORIDE 0.9% 1,000 ML IV STA (20:13)
--- NOTE | 2024-05-20 21:28 | CT ---
EXAMINATION TYPE: CT abdomen pelvis wo con DATE OF EXAM: 05/20/2024 9:09 PM COMPARISON: None. CLINICAL INDICATION: Female, 73 years old with history of pain, uti TECHNIQUE: Axial images were obtained from above the diaphragm to the pubic rami in the axial plane a t 5 mm thick sections. Reconstructed images are reviewed on the computer in the coronal plane. CONTRAST: mL of . Study performed without Oral Contrast DLP: 877 mGycm, Automated exposure control for dose reduction was used. FINDINGS: Limited CT sections are obtained the lung bases. There is a 1.1 cm density within the posterolateral right lung base may be some atelectasis. Other etiologies are not excluded. Small hiatal hernia is p resent. CT ABDOMEN: Liver: Normal Spleen: Normal Pancreas: Normal Adrenal glands: The adrenal glands are normal. Gallbladder: Normal Kidneys: No masses are evident. No hydronephrosis is present. Peripelvic cysts are present. There i s a moderate right hydronephrosis. No obstructing etiology is identified. Some perinephric stranding is adjacent to the renal pelvis. No renal stones are identified Aorta: Vascular calcification is within the aorta. Inferior vena cava: Normal. CT PELVIS: Loops of bowel within the abdomen and pelvis are normal. Diverticulosis without acute diverticulitis is present. This study is without oral contrast limiting bowel evaluation Appendix: Not identified. No dilated tubular structure or inflammatory changes evident. Urinary bladder: Normal. Genitourinary structures: Uterus has an exophytic calcified fibroid on the left. Adnexa are unremarka ble Osseous structures: No suspicious lytic or sclerotic lesions. IMPRESSION: 1. Diverticulosis without acute diverticulitis. 2. Moderate right hydronephrosis. Mild hydroureter is present. Some periureteral inflammatory changes are adjacent proximally. No obstructing etiology however is evident. Consider pyelonephritis. 3. Peripelvic cysts. Present on the left kidney. Some hydronephrosis is not entirely excluded. 4. No obstructing renal or ureteral stones evident [facility], , 05/20/2024 9:26 PM
[2024-05-20] MEDS: CIPROFLOXACIN HCL 500 MG TAB PO STA (21:52)
[2024-05-20] MEDS: ACETAMINOPHEN TAB 500 MG TAB PO STA (22:03)
[2024-05-20] MEDS: IBUPROFEN 800 MG TAB PO STA (22:03)
[2024-05-20] MEDS: ONDANSETRON 4 MG ODT STARTER PACK 2 TAB BTL PO STA (22:04)
[2024-05-20] MEDS ORDERED: ONDANSETRON 4 MG/2 ML VIAL IVP PRN (23:04)
[2024-05-20] MEDS ORDERED: IBUPROFEN 400 MG TAB PO PRN (23:04)
[2024-05-20] MEDS ORDERED: NALOXONE 0.4 MG/ML 1 ML VIAL IV PRN (23:04)
--- NOTE | 2024-05-21 00:53 | P.HPIM ---
History of Present Illness H&P Date: 05/20/24 Patient is a 73-year-old female with a PMH of recurrent UTIs who presents to the emergency room with urinary complaints and abdominal discomfort. Patient reports that over the past 3 to 5 days she has been experiencing increased urinary frequency and urgency which is characteristic of her previous UTIs. She reports that today however she developed nausea with a single episode of vomiting along with a 9 out of 10 right flank and back discomfort, which lasted for several hours. She reports the pain resolved after receiving antibiotics and pain medication in the emergency room and was pain-free at the time of interview. She denied experiencing fever, chills, dysuria, hematuria, chest discomfort, shortness of breath. CT abdomen and pelvis in the emergency room revealed findings consistent with right-sided pyelonephritis along with diverticulosis without diverticulitis. Laboratory evaluation was remarkable for leukocytosis of 11.2 with CO2 21, BUN 24, creatinine 0.94, with glucose 148 with UA consistent with UTI. ED documentation reviewed and case discussed with ED provider. Review of systems: Pertinent positives and negatives as discussed in HPI, a complete review of systems was performed and all other systems are negative. Physical examination: Vital signs reviewed General: non toxic, no distress, appears at stated age, obese Derm: no unusual rashes/lesions, warm Head: atraumatic, normocephalic, symmetric Eyes: EOMI, no lid lag, anicteric sclera, pupils equal round reactive to light ENT: Nose and ears atraumatic Neck: No cervical lymphadenopathy, trachea midline, supple Mouth: no lip lesion, mucus membranes moist Cardiovascular: S1S2 reg, no murmur, positive dorsalis pedis pulse bilateral, no edema Lungs: CTA bilateral, no rhonchi, no rales, no accessory muscle use Abdominal: soft, nontender to palpation, no guarding Ext: muscle strength 5 out of 5 in all 4 extremities grossly, no gross muscle atrophy, no contractures, Neuro: CN II-XI grossly intact, no gross focal neuro deficits Psych: Alert, oriented, appropriate affect Assessment: Sepsis secondary to pyelonephritis Prerenal azotemia Hyperglycemia without diagnosis of diabetes Imaging: CT abdomen and pelvis in the emergency room revealed findings consistent with right-sided pyelonephritis along with diverticulosis without diverticulitis. Data Review: Laboratory evaluation was remarkable for leukocytosis of 11.2 with CO2 21, BUN 24, creatinine 0.94, with glucose 148 with UA consistent with UTI. Plan: Continue with empiric antibiotics with ceftriaxone 2 g every 24 hours for now Continue IV fluids normal saline 125 cc/h Status post 2 L NS IV fluids in the emergency room Continue with antiemetics with Zofran 4 mg every 8 hours Continue with Tylenol as needed Check A1c Monitor BMP Follow-up blood and urine cultures DVT prophylaxis: Lovenox Subq The patient is admitted with an anticipated greater than 2 midnight stay for evaluation of Pyelonephritis CODE STATUS: Full Code Discussed with: Patient Anticipated discharge place: Home Past Medical History Additional Past Medical History / Comment(s): over active bladder History of Any Multi-Drug Resistant Organisms: None Reported Additional Past Surgical History / Comment(s): b/l cataract removal Past Psychological History: No Psychological Hx Reported Smoking Status: Never smoker Past Alcohol Use History: None Reported Past Drug Use History: None Reported Medications and Allergies Home Medications Medication Instructions Recorded Confirmed Type Ciprofloxacin HCl [Cipro] 500 mg PO BID 1 Days #14 tab 05/20/24 Rx Allergies Allergy/AdvReac Type Severity Reaction Status Date / Time Sulfa (Sulfonamide Allergy Vomiting Verified 05/20/24 18:49 Antibiotics) Physical Exam Vitals: Vital Signs Temp Pulse Resp BP Pulse Ox 05/20/24 22:48 101 F H 122 H 18 132/63 92 L 05/20/24 21:51 102 F H 131 H 22 158/71 90 L 05/20/24 19:35 97.6 F 93 18 205/106 98 05/20/24 18:44 97.8 F 86 19 168/84 99 Intake and Output 05/20/24 05/20/24 05/21/24 14:59 22:59 06:59 Other: Weight 89.811 kg Results CBC & Chem 7: 05/20/24 19:10 05/20/24 19:10 Labs: Abnormal Lab Results - Last 24 Hours (Table) 05/20/24 05/20/24 05/20/24 Range/Units 19:10 19:10 19:10 WBC 11.2 H (3.8-10.6) k/uL Neutrophils # 10.2 H (1.3-7.7) k/uL Lymphocytes # 0.8 L (1.0-4.8) k/uL Carbon Dioxide 21 L (22-30) mmol/L BUN 24 H (7-17) mg/dL Glucose 148 H (74-99) mg/dL Urine Ketones 1+ H (Negative) Ur Leukocyte Esterase Large H (Negative) Urine WBC 84 H (0-5) /hpf Urine Bacteria Occasional H (None) /hpf Urine Mucus Few H (None) /hpf
[2024-05-21] MEDS: TEMAZEPAM 15 MG CAP PO PRN (01:22)
[2024-05-21 01:24] LABS: HCT 35.3 % (34.0-46.0); HGB 11.3 gm/dL (11.4-16.0); MCH 27.9 pg (25.0-35.0); MCHC 31.9 g/dL (31.0-37.0); MCV 87.4 fL (80.0-100.0); Mean Platelet Volume 7.8; Platelet Count 163 k/uL (150-450); RBC 4.04 m/uL (3.80-5.40); WBC 8.6 k/uL (3.8-10.6)
[2024-05-21] MEDS: SODIUM CHLORIDE 0.9% 1,000 ML IV SCH (01:34)
[2024-05-21 01:35] LABS: African American GFR (CKD) 58 (>60 ml/min/1.73 sqM); Anion Gap 7 mmol/L; Blood Urea Nitrogen 25 mg/dL (7-17); Calcium 8.9 mg/dL (8.4-10.2); Carbon Dioxide 24 mmol/L (22-30); Chloride 107 mmol/L (98-107); Glucose 121 mg/dL (74-99); Non-African American GFR(CKD) 50 (>60 ml/min/1.73 sqM); Potassium 3.2 mmol/L (3.5-5.1); Sodium 138 mmol/L (137-145)
[2024-05-21] MEDS: SODIUM CHLORIDE 0.9% 1,000 ML IV ONE (02:29)
[2024-05-21] MEDS: POTASSIUM CHLORIDE ER 20 MEQ TAB.ER PO STA (02:29)
[2024-05-21] MEDS: ACETAMINOPHEN TAB 325 MG TAB PO PRN (02:29)
[2024-05-21] MEDS: CALCIUM CARBONATE 500 MG CHEWABLE PO PRN (04:54)
[2024-05-21] MEDS: ENOXAPARIN 40 MG/0.4 ML SYRINGE SQ SCH (08:14)
[2024-05-21] MEDS ORDERED: CIPROFLOXACIN HCL 500 MG TAB PO SCH (09:00)
[2024-05-21] MEDS: ONDANSETRON ODT 4 MG TAB PO PRN (09:44)
[2024-05-21] MEDS: MAG HYDROX/AL HYDROX/SIMETH 30 ML CUP PO PRN (11:55)
--- NOTE | 2024-05-21 13:49 | P.PN ---
Subjective Progress Note Date: 05/21/24 Hospital course: Patient is a 73-year-old female with a past medical history of overactive bladder and recurrent UTIs. She presented to the emergency department on 05/20/2024 with a chief complaint of right flank pain accompanied by urinary frequency, urgency, nausea and vomiting. Upon arrival to our facility, patient underwent evaluation in the emergency department. Vital signs upon arrival show blood pressure 168/84, heart rate 86, respiratory rate 19, temp 97.8 F, and SpO2 of 99% on room air short while after arrival patient's temperature elevated to 102.0 F and heart rate of 131. Labs were completed and reviewed. CBC showing leukocytosis with WBC count of 11.2. BMP showing high anion gap metabolic acidosis with chloride of 106, bicarb of 21, and anion gap of 15 and prerenal azotemia with BUN of 24. Blood glucose was 148. Liver profile unremarkable. Urinalysis positive for UTI. CT abdomen and pelvis completed showing moderate right hydronephrosis, mild hydroureter some periureteral inflammatory changes consistent with pyelonephritis. Patient admitted under our services consultation to urology. Physical exam: Vital signs reviewed and stable. General: Nontoxic, no distress and appears stated age. Derm: Skin warm and dry, normal coloration for ethnicity. Head: Atraumatic, normocephalic and symmetric. Eyes: EOM's intact, no lid lag, and anicteric sclera Mouth: no lip lesions, mucus membranes moist Cardiovascular: regular rate and rhythm with normal S1S2, no murmur, positive posterior tibial pulses bilaterally, and cap refill < 2 seconds. Lungs: Respirations even, regular, and unlabored on room air. Lungs CTA bilaterally, no rhonchi, no rales, no wheezing, and no accessory muscle usage. Abdominal: soft, nontender to palpation, no guarding, no appreciable organomegaly. Right sided flank pain/CVA tenderness Ext: ROM intact. No gross muscle atrophy, no edema, no contractures Neuro: Speech clear, face symmetrical and CN II-XII grossly intact with no noted focal neuro deficits Psych: Alert and oriented to person, place, time, and situation. Appropriate and pleasant affect. Assessment and Plan of Care: Pyelonephritis Sepsis secondary to above -Continue IV antibiotics with Rocephin 2 g IVPB daily. -Follow-up on urinalysis and blood culture results. -Consult to urology, appreciate recommendations. -Continue close monitoring of renal function with repeat a.m. labs. -Bladder scan to monitor for urinary retention/postvoid residual. -Monitor I's and O's. -Symptomatic care and pain management with Zofran 4 mg every 8 hours as needed for nausea and vomiting, Tylenol 650 mg p.o. every 6 hours as needed for mild pain, [place] 5-325 mg tablets as needed for moderate pain, and morphine 4 mg IVP as needed for severe pain. Overactive bladder -Continue fesoterodine fumarate 4 mg daily. Hyperlipidemia -Continue atorvastatin 10 mg daily. Insomnia -Continue daily home medication regimen with Ambien 10 mg nightly. Data and imaging reviewed: -Morning labs reviewed. CBC showing resolution of leukocytosis with WBC count decreasing from 11.2 down to 8.6. Hemoglobin 11.3. BMP showing hypokalemia with potassium of 3.2 and slight elevation of renal function with BUN of 25, creatinine of 1.08 and GFR of 50. Blood glucose 120. -Vital signs reviewed. Blood pressure soft this morning at 92/54, heart rate 88, respiratory rate 16, temp 97.6 F, and SpO2 of 95% on room air. CODE STATUS: Full code DVT prophylaxis: Lovenox Anticipated discharge date: Pending clinical course Anticipated discharge place: Home Patient was seen independently by Nurse Pracitioner. This document was prepared using [employer] dictation software. Please allow for errors in senior reactor operator, while rare they do occur. Rm Saenz NP rendered care for this patient independently, reviewed the findings and plan as documented in the note above and agree with plan. I did not physically speak with or examine the patient on this date. Care, it was truly a pleasure having you for our patient!!! Objective - Vital Signs Vital signs: Vital Signs Temp 97.6 F 05/21/24 07:10 Pulse 88 05/21/24 07:10 Resp 16 05/21/24 07:10 BP 92/54 05/21/24 07:10 Pulse Ox 95 05/21/24 09:19 FiO2 Intake & Output 05/20/24 05/21/24 05/21/24 18:59 06:59 18:59 Intake Total 118 Balance 118 Weight 89.811 kg 89.811 kg Intake: Oral 118 Other: Voiding Method Toilet # Voids 1 - Labs CBC & Chem 7: 05/21/24 01:03 05/21/24 01:03 Labs: Abnormal Lab Results - Last 24 Hours (Table) 05/20/24 05/20/24 05/20/24 Range/Units 19:10 19:10 19:10 WBC 11.2 H (3.8-10.6) k/uL Hgb (11.4-16.0) gm/dL Neutrophils # 10.2 H (1.3-7.7) k/uL Lymphocytes # 0.8 L (1.0-4.8) k/uL Potassium (3.5-5.1) mmol/L Carbon Dioxide 21 L (22-30) mmol/L BUN 24 H (7-17) mg/dL Creatinine (0.52-1.04) mg/dL Glucose 148 H (74-99) mg/dL Urine Ketones 1+ H (Negative) Ur Leukocyte Esterase Large H (Negative) Urine WBC 84 H (0-5) /hpf Urine Bacteria Occasional H (None) /hpf Urine Mucus Few H (None) /hpf 05/21/24 05/21/24 Range/Units 01:03 01:03 WBC (3.8-10.6) k/uL Hgb 11.3 L (11.4-16.0) gm/dL Neutrophils # (1.3-7.7) k/uL Lymphocytes # (1.0-4.8) k/uL Potassium 3.2 L (3.5-5.1) mmol/L Carbon Dioxide (22-30) mmol/L BUN 25 H (7-17) mg/dL Creatinine 1.08 H (0.52-1.04) mg/dL Glucose 121 H (74-99) mg/dL Urine Ketones (Negative) Ur Leukocyte Esterase (Negative) Urine WBC (0-5) /hpf Urine Bacteria (None) /hpf Urine Mucus (None) /hpf
[2024-05-21] MEDS ORDERED: BRIMONIDINE TARTRATE 0.2% DROPS 5 ML BTL BOTH EYES PRN (17:48)
[2024-05-21] MEDS ORDERED: HYDROcodone/APAP 5-325MG 1 EACH TAB PO PRN (17:51)
[2024-05-21] MEDS ORDERED: MORPHINE SULFATE 4 MG/ML SYRINGE IV PRN (17:51)
[2024-05-21] MEDS: ZOLPIDEM 5 MG TAB PO SCH (23:03)
[2024-05-22] MEDS: ATORVASTATIN 10 MG TAB PO SCH (07:59)
[2024-05-22] MEDS: TROSPIUM CHLORIDE 20 MG TABLET PO SCH (08:00)
[2024-05-22 09:00] LABS: Blood Urea Nitrogen 19.8 mg/dL (9.0-27.0); Calcium 8.3 mg/dL (8.7-10.3); Carbon Dioxide 21.3 mmol/L (21.6-31.8); Chloride 110 mmol/L (96-109); Glucose 90 mg/dL (70-110); HCT 32.6 % (37.2-46.3); HGB 10.2 g/dL (12.0-15.0); MCH 27.4 pg (27.0-32.0); MCHC 31.3 g/dL (32.0-37.0); MCV 87.6 FL (80.0-97.0); Magnesium 1.7 mg/dL (1.5-2.4); NRBC Per 100 WBC 0 X 10*3/uL (0.00-0.01); Platelet Count 144 X 10*3/uL (140-440); RBC 3.72 X 10*6/uL (4.10-5.20); RDW 14.8 % (11.5-14.5); Sodium 141 mmol/L (135-145); WBC 19.79 X 10*3/uL (4.50-10.00)
[2024-05-22] MEDS: MAGNESIUM SULFATE-D5W PMX 1 GM in DEXTROSE/WATER 1 100ML.BAG IVPB SCH (10:13)
--- NOTE | 2024-05-22 10:47 | P.GSCN ---
History of Present Illness Consult date: 05/22/24 Reason for Consult: Pyelonephritis, right hydronephrosis History of present illness: This is a 73-year-old female admitted to the hospital with pyelonephritis. She presented to the hospital with 1 week history of urinary urgency frequency and dysuria. Is also associated with right-sided flank pain and fever. On presentation patient was febrile. She does have history of recurrent UTIs, and indicated she did have UTI last year. No previous history of kidney stones or any renal or bladder surgeries. She underwent a CT abdomen pelvis that showed evidence of right-sided hydronephrosis, no stone was visualized along the course of the ureter. Her white count did go up to 19 this morning from 8 yesterday. She is afebrile and hemodynamically stable this morning. Review of Systems - Constitutional Reports chills, Reports fever - Cardiovascular Reports as per HPI - Respiratory Denies cough, Denies 7 - Gastrointestinal Reports nausea, Reports vomiting, Denies abdominal pain - Genitourinary Genitourinary: Reports dysuria, Reports flank pain, Reports urinary frequency - Integumentary Denies rash, Denies unusual bruising Past Medical History Additional Past Medical History / Comment(s): over active bladder History of Any Multi-Drug Resistant Organisms: None Reported Additional Past Surgical History / Comment(s): b/l cataract removal Past Psychological History: No Psychological Hx Reported Smoking Status: Never smoker Past Alcohol Use History: None Reported Past Drug Use History: None Reported Medications and Allergies Home Medications Medication Instructions Recorded Confirmed Type Ciprofloxacin HCl [Cipro] 500 mg PO BID 1 Days #14 tab 05/20/24 Rx Atorvastatin [Lipitor] 10 mg PO DAILY 05/21/24 05/21/24 History Brimonidine Tartrate [Alphagan P 1 drops BOTH EYES DAILY PRN 05/21/24 05/21/24 History 0.1% Ophth Soln] Fesoterodine Fumarate 4 mg PO DAILY 05/21/24 05/21/24 History [Fesoterodine Fumarate ER] Zolpidem [Ambien] 10 mg PO HS 05/21/24 05/21/24 History Allergies Allergy/AdvReac Type Severity Reaction Status Date / Time Sulfa (Sulfonamide Allergy Vomiting Verified 05/21/24 08:03 Antibiotics) Surgical - Exam Vital Signs Temp Pulse Resp BP Pulse Ox 97.8 F 86 19 168/84 99 05/20/24 18:44 05/20/24 18:44 05/20/24 18:44 05/20/24 18:44 05/20/24 18:44 - General no distress, no pain - Eyes normal ocular movement, no pale - ENT normal nares, normal mucosa - Respiratory normal expansion, normal respiratory effort - Abdomen Abdomen: soft, non tender, no distended - Psychiatric oriented to time, oriented to person, oriented to place Results - Labs 05/22/24 04:55 05/22/24 04:55 Abnormal Lab Results - Last 24 Hours (Table) 05/22/24 05/22/24 Range/Units 04:55 04:55 WBC 19.79 H (4.50-10.00) X 10*3/uL RBC 3.72 L (4.10-5.20) X 10*6/uL Hgb 10.2 L (12.0-15.0) g/dL Hct 32.6 L (37.2-46.3) % MCHC 31.3 L (32.0-37.0) g/dL RDW 14.8 H (11.5-14.5) % Chloride 110 H (96-109) mmol/L Carbon Dioxide 21.3 L (21.6-31.8) mmol/L BUN/Creatinine Ratio 22.00 H (12.00-20.00) Ratio Calcium 8.3 L (8.7-10.3) mg/dL Microbiology - Last 24 Hours (Table) 05/20/24 19:10 Urine Culture - Preliminary Urine,Voided Gram Neg Bacilli Diabetes panel 05/22/24 Range/Units 04:55 Sodium 141 (135-145) mmol/L Potassium 4.0 (3.5-5.5) mmol/L Chloride 110 H (96-109) mmol/L Carbon Dioxide 21.3 L (21.6-31.8) mmol/L BUN 19.8 (9.0-27.0) mg/dL Creatinine 0.9 (0.6-1.5) mg/dL Glucose 90 (70-110) mg/dL Calcium 8.3 L (8.7-10.3) mg/dL Calcium panel 05/22/24 Range/Units 04:55 Calcium 8.3 L (8.7-10.3) mg/dL Pituitary panel 05/22/24 Range/Units 04:55 Sodium 141 (135-145) mmol/L Potassium 4.0 (3.5-5.5) mmol/L Chloride 110 H (96-109) mmol/L Carbon Dioxide 21.3 L (21.6-31.8) mmol/L BUN 19.8 (9.0-27.0) mg/dL Creatinine 0.9 (0.6-1.5) mg/dL Glucose 90 (70-110) mg/dL Calcium 8.3 L (8.7-10.3) mg/dL Adrenal panel 05/22/24 Range/Units 04:55 Sodium 141 (135-145) mmol/L Potassium 4.0 (3.5-5.5) mmol/L Chloride 110 H (96-109) mmol/L Carbon Dioxide 21.3 L (21.6-31.8) mmol/L BUN 19.8 (9.0-27.0) mg/dL Creatinine 0.9 (0.6-1.5) mg/dL Glucose 90 (70-110) mg/dL Calcium 8.3 L (8.7-10.3) mg/dL Assessment and Plan Assessment: 73-year-old female admitted to the hospital with right-sided pyelonephritis and right-sided hydronephrosis. Patient is afebrile hemodynamically stable this morning, she is having minimal right flank pain at this time. She did have a upward trend in her white count to 19 from 8. Urine culture is growing gram- negative bacilli. Given the lack of fevers and minimal flank pain at this time we will observe the hydronephrosis, if she starts spiking high-grade fevers, or the white count continues to trend upward, then she might require stent, but at this time recommend continuing with IV antibiotics and close observation Continue IV antibiotics, follow-up on urine culture We will reassess tomorrow
--- NOTE | 2024-05-22 11:40 | P.PN ---
Subjective Progress Note Date: 05/22/24 Hospital course: Patient is a 73-year-old female with a past medical history of overactive bladder and recurrent UTIs. She presented to the emergency department on 05/20/2024 with a chief complaint of right flank pain accompanied by urinary frequency, urgency, nausea and vomiting. Upon arrival to our facility, patient underwent evaluation in the emergency department. Vital signs upon arrival show blood pressure 168/84, heart rate 86, respiratory rate 19, temp 97.8 F, and SpO2 of 99% on room air short while after arrival patient's temperature elevated to 102.0 F and heart rate of 131. Labs were completed and reviewed. CBC showing leukocytosis with WBC count of 11.2. BMP showing high anion gap metabolic acidosis with chloride of 106, bicarb of 21, and anion gap of 15 and prerenal azotemia with BUN of 24. Blood glucose was 148. Liver profile unr emarkable. Urinalysis positive for UTI. CT abdomen and pelvis completed showing moderate right hydronephrosis, mild hydroureter some periureteral inflammatory changes consistent with pyelonephritis. Patient admitted under our services consultation to urology. Physical exam: Vital signs reviewed and stable. General: Nontoxic, no distress and appears stated age. Derm: Skin warm and dry, normal coloration for ethnicity. Head: Atraumatic, normocephalic and symmetric. Eyes: EOM's intact, no lid lag, and anicteric sclera Mouth: no lip lesions, mucus membranes moist Cardiovascular: regular rate and rhythm with normal S1S2, no murmur, positive posterior tibial pulses bilaterally, and cap refill < 2 seconds. Lungs: Respirations even, regular, and unlabored on room air. Lungs CTA bilaterally, no rhonchi, no rales, no wheezing, and no accessory muscle usage. Abdominal: soft, nontender to palpation, no guarding, no appreciable organomegaly. Right sided flank pain/CVA tenderness Ext: ROM intact. No gross muscle atrophy, no edema, no contractures Neuro: Speech clear, face symmetrical and CN II-XII grossly intact with no noted focal neuro deficits Psych: Alert and oriented to person, place, time, and situation. Appropriate and pleasant affect. Assessment and Plan of Care: Pyelonephritis Worsening leukocytosis Sepsis secondary to above -Continue IV antibiotics with Rocephin 2 g IVPB daily. -Follow-up on urine culture and blood culture results. -Consult to urology, discussed worsening leukocytosis, patient's continued vomiting, and new reports of burning with urination with urology. Dr. Downing recommending continue to monitor for an additional 24 hours and if leukocytosis worsens or patient's symptoms worsen may evaluate for possible cystoscopy tomorrow. -Continue close monitoring of renal function with repeat a.m. labs. -Bladder scan to monitor for urinary retention/postvoid residual. -Monitor I's and O's. -Symptomatic care and pain management with Zofran 4 mg every 8 hours as needed for nausea and vomiting, Tylenol 650 mg p.o. every 6 hours as needed for mild pain, [place] 5-325 mg tablets as needed for moderate pain, and morphine 4 mg IVP as needed for severe pain. Hypomagnesemia -Magnesium 1.7. Orders placed for magnesium sulfate 2 g IVPB. Continue to monitor with repeat a.m. labs and place additional orders if indicated based upon these findings.. Overactive bladder -Continue fesoterodine fumarate 4 mg daily. Hyperlipidemia -Continue atorvastatin 10 mg daily. Insomnia -Continue daily home medication regimen with Ambien 10 mg nightly. Data and imaging reviewed: -Morning labs reviewed. CBC showing significant drop in WBC count from 8.6 yesterday up to 19.79 this morning and hemoglobin is stable at 10.2. BMP showing non-anion gap metabolic acidosis with chloride of 110, bicarb of 21.3, and anion gap of 9.70. Renal function stable with BUN 19.8, creatinine 0.9, GFR of 67. Blood glucose 98. Magnesium was low at 1.7. Urine culture preliminary results positive for gram-negative bacilli, awaiting final culture and sensitivity report. -Vital signs reviewed. Blood pressure 125/70, heart rate 98, respiratory rate 15, temp 98.8 F, and SpO2 is 94% on room air. CODE STATUS: Full code DVT prophylaxis: Lovenox Anticipated discharge date: Pending clinical course Anticipated discharge place: Home Patient was seen independently by Nurse Pracitioner. This document was prepared using [employer] dictation software. Please allow for errors in boat person, while rare they do occur. Rm Saenz NP rendered care for this patient independently, reviewed the findings and plan as documented in the note above and agree with plan. I did not physically speak with or examine the patient on this date. Care, it was truly a pleasure having you for our patient!!! Objective - Vital Signs Vital signs: Vital Signs Temp 98.8 F 05/22/24 07:00 Pulse 98 05/22/24 07:00 Resp 15 05/22/24 07:00 BP 125/70 05/22/24 07:00 Pulse Ox 94 L 05/22/24 07:00 FiO2 Intake & Output 05/21/24 05/22/24 05/22/24 18:59 06:59 18:59 Intake Total 358 Balance 358 Intake: Oral 358 Other: Voiding Method Toilet Toilet Toilet # Voids 4 - Labs CBC & Chem 7: 05/22/24 04:55 05/22/24 04:55 Labs: Abnormal Lab Results - Last 24 Hours (Table) 05/22/24 05/22/24 Range/Units 04:55 04:55 WBC 19.79 H (4.50-10.00) X 10*3/uL RBC 3.72 L (4.10-5.20) X 10*6/uL Hgb 10.2 L (12.0-15.0) g/dL Hct 32.6 L (37.2-46.3) % MCHC 31.3 L (32.0-37.0) g/dL RDW 14.8 H (11.5-14.5) % Chloride 110 H (96-109) mmol/L Carbon Dioxide 21.3 L (21.6-31.8) mmol/L BUN/Creatinine Ratio 22.00 H (12.00-20.00) Ratio Calcium 8.3 L (8.7-10.3) mg/dL Microbiology - Last 24 Hours (Table) 05/20/24 19:10 Urine Culture - Preliminary Urine,Voided Gram Neg Bacilli
[2024-05-22] MEDS: PROCHLORPERAZINE INJ 10 MG/2 ML VIAL IVP PRN (12:12)
[2024-05-23 07:45] VITALS: BP 155/81; PULSE 93; RESP 16; TEMP 98.5
[2024-05-23 08:38] LABS: HCT 32.8 % (37.2-46.3); HGB 10.5 g/dL (12.0-15.0); MCH 27.4 pg (27.0-32.0); MCV 85.6 FL (80.0-97.0); Mean Platelet Volume 11.4 FL (9.5-12.2); NRBC Per 100 WBC 0 X 10*3/uL (0.00-0.01); Platelet Count 150 X 10*3/uL (140-440); RBC 3.83 X 10*6/uL (4.10-5.20); RDW 14.6 % (11.5-14.5); WBC 9.97 X 10*3/uL (4.50-10.00)
[2024-05-23 09:06] LABS: ALT 20 U/L (8-44); AST 29 U/L (13-35); Albumin 3.3 g/dL (3.8-4.9); Albumin/Globulin Ratio 1.94 Ratio (1.60-3.17); Alkaline Phosphatase 75 U/L (41-126); BUN/Creat Ratio 18.33 Ratio (12.00-20.00); Calcium 7.8 mg/dL (8.7-10.3); Carbon Dioxide 20.4 mmol/L (21.6-31.8); Chloride 107 mmol/L (96-109); Globulin 1.7 g/dL (1.6-3.3); Glucose 89 mg/dL (70-110); Potassium 3.6 mmol/L (3.5-5.5); Sodium 138 mmol/L (135-145); Total Bilirubin 0.4 mg/dL (0.3-1.2)
--- NOTE | 2024-05-23 10:40 | P.DS ---
Providers Date of admission: 05/20/24 22:50 Expected date of discharge: 05/23/24 Attending physician: Zenon Greene MD Consults: 05/21/24 17:44 Consult Physician Routine Consulting Provider: Vinicius Leonardo Consult Reason/Comments: recurrent UTI, pyelonephritis with hydronephrosis and hydroureter Do you want consulting provider notified?: Yes Primary care physician: Reji Qureshi [facility] Course: Discharge Diagnosis: Pyelonephritis. Patient received 4-day course of IV antibiotics with Rocephin and being discharged home on ciprofloxacin 500 mg twice daily for 7 days per urology recommendations. Urine culture positive for E. coli with no reported resistance of blood culture showing no growth to date. Patient to follow-up outpatient with PCP in 1 to 2 days and with urologist in 1 week. Leukocytosis. Resolved. WBC decreasing from 19.79 down to 9.97 on day of dis charge. Sepsis secondary to above Hypomagnesemia. Resolved magnesium 2.0 on discharge. Overactive bladder. Continue fesoterodine fumarate 4 mg daily. Hyperlipidemia. Continue atorvastatin 10 mg daily. Insomnia Continue daily home medication regimen with Ambien 10 mg nightly. Hospital course: Patient is a 73-year-old female with a past medical history of overactive bladder and recurrent UTIs. She presented to the emergency department on 05/20/2024 with a chief complaint of right flank pain accompanied by urinary frequency, urgency, nausea and vomiting. Upon arrival to our facility, patient underwent evaluation in the emergency department. Vital signs upon arrival show blood pressure 168/84, heart rate 86, respiratory rate 19, temp 97.8 F, and SpO2 of 99% on room air short while after arrival patient's temperature elevated to 102.0 F and heart rate of 131. Labs were completed and reviewed. CBC showing leukocytosis with WBC count of 11.2. BMP showing high anion gap metabolic acidosis with chloride of 106, bicarb of 21, and anion gap of 15 and prerenal azotemia with BUN of 24. Blood glucose was 148. Liver profile unremarkable. Urinalysis positive for UTI. CT abdomen and pelvis completed showing moderate right hydronephrosis, mild hydroureter some periureteral inflammatory changes consistent with pyelonephritis. Patient admitted under our services consultation to urology. She was monitored closely and underwent a 3 night hospitalization. Patient's symptoms improving. She was evaluated by urologist and Dr. Downing clearing patient from urology perspective stating no need for cystoscopy at this time recommending discharge home on ciprofloxacin 500 mg twice daily for 7 days and urologist sent prescription for antibiotic. Urine culture positive for E. coli with no reported resistance. Blood culture revealed no growth to date. Patient is medically optimized at this time and reports feeling very eagerly ready to go home. She denies having any further needs, questions, or concerns. Patient to follow-up outpatient with PCP in 1 to 2 days and with urologist in 1 week. Physical exam: Vital signs reviewed and stable. General: Nontoxic, no distress and appears stated age. Derm: Skin warm and dry, normal coloration for ethnicity. Head: Atraumatic, normocephalic and symmetric. Eyes: EOM's intact, no lid lag, and anicteric sclera Mouth: no lip lesions, mucus membranes moist Cardiovascular: regular rate and rhythm with normal S1S2, no murmur, positive posterior tibial pulses bilaterally, and cap refill < 2 seconds. Lungs: Respirations even, regular, and unlabored on room air. Lungs CTA bilaterally, no rhonchi, no rales, no wheezing, and no accessory muscle usage. Abdominal: soft, nontender to palpation, no guarding, no appreciable organomegaly. Right sided flank pain/CVA tenderness Ext: ROM intact. No gross muscle atrophy, no edema, no contractures Neuro: Speech clear, face symmetrical and CN II-XII grossly intact with no noted focal neuro deficits Psych: Alert and oriented to person, place, time, and situation. Appropriate and pleasant affect. A total of 31 minutes of time were spent preparing this complex discharge summary. Pt was discharged on 05/23/2024 at 10:38 AM. Patient was seen independently by Nurse Practitioner. This document was prepared using [employer] dictation software. Please allow for errors in manager of school while rare they do occur. Rm Saenz NP rendered care for this patient independently, reviewed the fi ndings and plan as documented in the note above. I did not physically speak with or examine the patient on this date. Patient Condition at Discharge: Stable Plan - Discharge Summary New Discharge Prescriptions: New Ciprofloxacin HCl [Cipro] 500 mg PO BID 1 Days #14 tab Continue Brimonidine Tartrate [Alphagan P 0.1% Ophth Soln] 1 drops BOTH EYES DAILY PRN PRN Reason: night driving Atorvastatin [Lipitor] 10 mg PO DAILY Zolpidem [Ambien] 10 mg PO HS Fesoterodine Fumarate [Fesoterodine Fumarate ER] 4 mg PO DAILY Discharge Medication List Ciprofloxacin HCl [Cipro] 500 mg PO BID 1 Days #14 tab 05/20/24 [Rx] Atorvastatin [Lipitor] 10 mg PO DAILY 05/21/24 [History] Brimonidine Tartrate [Alphagan P 0.1% Oph Soln] 1 drops BOTH EYES DAILY PRN 05/21/24 [History] Fesoterodine Fumarate [Fesoterodine Fumarate ER] 4 mg PO DAILY 05/21/24 [History] Zolpidem [Ambien] 10 mg PO HS 05/21/24 [History] Follow up Appointment(s)/Referral(s): Edis Downing MD [STAFF PHYSICIAN] - 1 Week (Office will call patient with appointment ) Reji Sidhu MD [Primary Care Provider] - 1-2 days Patient Instructions/Handouts: Urinary Tract Infection in Women (ED) Activity/Diet/Wound Care/Special Instructions: Increase water and cranberry juice intake. Follow-up with PCP/urology for any ongoing management of UTI/pyelonephritis Discharge Disposition: HOME SELF-CARE
[2024-05-23] MEDS: LOPERAMIDE 2 MG CAP PO STA (11:59)
--- NOTE | 2024-05-23 12:29 | P.PN ---
Subjective Progress Note Date: 05/23/24 No acute overnight event, denies any flank pain, indicates nausea is improving. Her white count is down to 9.9 Objective - Vital Signs Vital signs: Vital Signs Temp 98.5 F 05/23/24 07:00 Pulse 93 05/23/24 07:00 Resp 16 05/23/24 08:00 BP 155/81 05/23/24 07:00 Pulse Ox 97 05/23/24 07:00 FiO2 Intake & Output 05/22/24 05/23/24 05/23/24 18:59 06:59 18:59 Other: Voiding Method Toilet Toilet Toilet # Voids 2 - Labs CBC & Chem 7: 05/23/24 05:16 05/23/24 05:16 Labs: Abnormal Lab Results - Last 24 Hours (Table) 05/23/24 05/23/24 Range/Units 05:16 05:16 RBC 3.83 L (4.10-5.20) X 10*6/uL Hgb 10.5 L (12.0-15.0) g/dL Hct 32.8 L (37.2-46.3) % RDW 14.6 H (11.5-14.5) % Carbon Dioxide 20.4 L (21.6-31.8) mmol/L Calcium 7.8 L (8.7-10.3) mg/dL Total Protein 5.0 L (6.2-8.2) g/dL Albumin 3.3 L (3.8-4.9) g/dL Microbiology - Last 24 Hours (Table) 05/20/24 19:10 Urine Culture - Final Urine,Voided Escherichia coli 05/21/24 00:58 Blood Culture - Preliminary Blood Assessment and Plan Assessment: 73-year-old female admitted to the hospital with right-sided pyelonephritis and right-sided hydronephrosis. Patient is afebrile hemodynamically stable this morning. This morning she is asymptomatic. Urine cultures growing E. coli. White count did trend down to 9 from 19. From urology standpoint she is okay for discharge, she will be set up for an outpatient renal ultrasound to assess resolution of hydronephrosis
== END 2024-05-23 13:36 | disposition home or self-care (01) | DRG 872 ==
LOC: EC 18:18 → 5NMEDONC 22:50 → 6NMEDSUR 05-21 02:11
PROVIDERS: ADMIT Internal Medicine; ATTEND Internal Medicine
DX: A41.51 Sepsis due to Escherichia coli [E. coli] (principal); E87.20 Acidosis, unspecified; N13.6 Pyonephrosis; E78.5 Hyperlipidemia, unspecified; N32.81 Overactive bladder; K57.30 Diverticulosis of large intestine without perforation or abscess without bleeding; E83.42 Hypomagnesemia; R35.0 Frequency of micturition; G47.00 Insomnia, unspecified; Z79.899 Other long term (current) drug therapy; Z87.440 Personal history of urinary (tract) infections; Z98.42 Cataract extraction status, left eye; Z98.41 Cataract extraction status, right eye; Z88.2 Allergy status to sulfonamides
CPT/HCPCS: 36415; 74176; 80048; 80053; 81001; 83036; 83735; 85025; 85027; 87040; 87045; 87046; 87077; 87086; 87186; 87324; 96361; 96374; 96375; 99285

== ENCOUNTER → 2024-06-05 | Outpatient (CLI) | payer MEDICARE, BC, OTHER ==
--- NOTE | 2024-06-05 14:44 | US ---
EXAMINATION TYPE: US kidneys/renal and bladder DATE OF EXAM: 06/05/2024 COMPARISON: CT 05/20/2024 CLINICAL INDICATION: Female, 73 years old with history of N13.30 UNSPECIFIED HYDRONEPHROSIS; Hydronep hrosis, previous UTI, no symptoms at this time TECHNIQUE: Grayscale imaging of the bilateral kidneys and urinary bladder: FINDINGS: EXAM MEASUREMENTS: Right Kidney: 9.7 x 5.6 x 4.9 cm Left Kidney: 10.6 x 5.9 x 4.6 cm Right Kidney: Slight hydronephrosis noted ? Left Kidney: Hydronephrosis noted ? Bladder: wnl Bilateral Jets seen: Yes There is no evidence for hydronephrosis at this point in time. No nephrolithiasis is seen. No thalia s are identified. The urinary bladder is anechoic. Exam limited by body habitus and bowel gas. Small cystic lesion centrally in the right kidney is seen . Bladder is adequately distended. Bilateral distal ureteral jets are seen. More prominent cystic abigail nge centrally in the left kidney is identified. IMPRESSION: Suspect there are parapelvic cysts mimicking hydronephrosis bilaterally more prominent on the left. C onsider nuclear medicine renal scan to more definitively evaluate. [facility], , 06/05/2024 2:42 PM
== END | disposition home or self-care (01) ==
LOC: RADUSWWP 13:46
PROVIDERS: ATTEND Urology
DX: N13.30 Unspecified hydronephrosis (principal); Z87.440 Personal history of urinary (tract) infections
CPT/HCPCS: 76770

== ENCOUNTER → 2024-06-22 | Outpatient (CLI) | payer MEDICARE, BC, OTHER ==
--- NOTE | 2024-06-22 10:27 | CT ---
EXAMINATION TYPE: CT chest wo con DATE OF EXAM: 06/22/2024 COMPARISON: CT abdomen and pelvis May 20, 2024 CLINICAL INDICATION: Female, 73 years old with history of R91.8 ABNORMAL FINDING OF LUNG FIELD, Abnor mal finding on prior abd. scan TECHNIQUE: CT scan of the thorax is performed without IV contrast. CT DLP: 452 mGycm. Automated Exposure Control for Dose Reduction was Utilized. FINDINGS: LUNGS: Focal 7 mm opacity posterior right lung base is less prominent versus prior study consistent w ith atelectasis and/or scarring. Additional focal mild to moderate scarring in the inferior lingula i s redemonstrated. Mild underlying emphysematous changes present. No suspicious consolidation. No conc erning the greater than 4 mm pulmonary nodules. No pleural effusion or pneumothorax seen. HEART: Size within normal limits. Moderate to severe coronary artery calcifications. MEDIASTINUM: Lack of IV contrast is noted to limit evaluation for mediastinal and especially hilar ad enopathy. There are no definitive greater than 1 cm mediastinal lymph nodes. No pericardial effusio n is seen. OTHER: A central hypodense area in the slight portion of the left kidney favors parapelvic cysts is r edemonstrated.. There is scoliosis in the thoracic spine present. There is exaggerated thoracic kypho sis. IMPRESSION: No suspicious pulmonary nodules or masses. Advise annual low-dose lung screening CT if th e patient is a high-risk patient. [facility], , 06/22/2024 10:25 AM
== END | disposition home or self-care (01) ==
LOC: RADCTMAIN 09:41
PROVIDERS: ATTEND Family Medicine
DX: R91.8 Other nonspecific abnormal finding of lung field (principal)
CPT/HCPCS: 71250

== ENCOUNTER → 2024-06-26 | Outpatient (CLI) | payer MEDICARE, BC, OTHER ==
--- NOTE | 2024-06-26 14:40 | MM ---
Reason for Exam: Screening (asymptomatic). Last mammogram was performed 1 year(s) and 2 month(s) ago. Patient History: Menarche at age 11. Patient has no children. Postmenopausal. Maternal aunt had breast cancer, age 35. Risk Values: Susan 5 year model risk: 2.0%. NCI Lifetime model risk: 4.2%. Prior Study Comparison: 05/12/2021 Bilateral Screening Mammogram, [facility]. 05/13/2022 Bilateral MG 3D screening mammo w/cad, [facility]. 05/16/2023 Bilateral MG 3D screening mammo w/cad, [facility]. Tissue Density: The breasts are heterogeneously dense, which may obscure small masses. Findings: Analyzed By CAD. There is no suspicious group of microcalcifications or new suspicious mass in either breast. Overall Assessment: Negative, BI-RAD 1 Management: Screening Mammogram of both breasts in 1 year. . Patient should continue monthly self-breast exams. A clinical breast exam by your physician is recommended on an annual basis. This exam should not preclude additional follow-up of suspicious palpable abnormalities. Note on Susan scores and lifetime risk: 1. A Susan score greater than 3% is considered moderate risk. If this is the case, consider specialist referral to assess eligibility for a risk reducing agent. 2. If overall lifetime risk for the development of breast cancer is 20% or higher, the patient may qualify for future screening with alternating mammogram and breast MRI. [facility], , 06/26/2024 2:36 PM. Electronically signed and approved by: Damion Alexander M.D. Radiologis
== END | disposition home or self-care (01) ==
LOC: RADMAMWWP 13:38
PROVIDERS: ATTEND Family Medicine
DX: Z12.31 Encounter for screening mammogram for malignant neoplasm of breast (principal); R92.333 Mammographic heterogeneous density, bilateral breasts; Z78.0 Asymptomatic menopausal state; Z80.3 Family history of malignant neoplasm of breast
CPT/HCPCS: 77063; 77067

== ENCOUNTER → 2024-06-26 | Outpatient (CLI) | payer MEDICARE, BC, OTHER ==
[~2024-06-26] MED LIST: FUROSEMIDE 10 MG/ML 2 ML VIAL IV ONE
--- NOTE | 2024-06-26 15:32 | NM ---
EXAMINATION TYPE: NM lasix renogram DATE OF EXAM: 06/26/2024 COMPARISON: CT abdomen and pelvis May 20, 2024 CLINICAL INDICATION: Female, 73 years old with history of N13.30 UNSPECIFIED HYDRONEPHROSIS; Following administration of 10.5 mCi Tc 99m MAG3 with 20mg Lasix. Immediate images post injection FINDINGS: Left: 52.3 %. Right: 47.7 %. Max renal flow left: 2.3 minutes. Max renal flow right: 2.6 minutes. Satisfactory accumulation of radiotracer within both renal collecting systems with satisfactory excre tion. After the administration of Lasix, there is symmetric prompt excretion from both collecting sys tems. T 1/2 left: 21.6 minutes. T 1/2 right: 21.5 minutes. IMPRESSION: Normal study. Symmetric satisfactory function to both kidneys is present. [facility], , 06/26/2024 3:30 PM
== END | disposition home or self-care (01) ==
LOC: RADNMMAIN 12:32
PROVIDERS: ATTEND Urology
DX: N13.30 Unspecified hydronephrosis (principal)
CPT/HCPCS: 78708; A9562